=== PATIENT | female | born 1995 | race American Indian/Alaskan Native ===

== ENCOUNTER 2016-09-26 14:11 | Emergency (ER) | payer OTHER ==
[2016-09-26 14:12] VITALS: BMI 23.0
[2016-09-26 14:51] VITALS: BP 114/77; PULSE 72; RESP 18; TEMP 98.8; O2SAT 100
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
== END 2016-09-26 16:25 | disposition home or self-care (01) ==
LOC: H.ER 14:11
DX: M54.9 Dorsalgia, unspecified (principal)

== ENCOUNTER 2016-12-15 17:40 | Emergency (ER) | payer OTHER ==
[2016-12-15 17:41] VITALS: BMI 23.0
[2016-12-15 17:51] VITALS: BP 110/63; PULSE 77; RESP 18; TEMP 98.7; O2SAT 99
[2016-12-15] MEDS ORDERED: Fluorescein 1 mg Ophthalmic Strip ONE (17:56)
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
== END 2016-12-15 18:55 | disposition home or self-care (01) ==
LOC: H.ER 17:40
DX: H20.012 Primary iridocyclitis, left eye (principal)

== ENCOUNTER 2017-03-07 16:41 | Emergency (ER) | payer OTHER ==
[2017-03-07 16:41] VITALS: BMI 23.0
--- NOTE | 2017-03-07 17:46 | ED PDOC ---
HPI: Abdomen <Damian Chowdhury - Last Filed: 03/07/17 18:40> Chief Complaint (Provider): abdominal pain/diarrhea/vomiting History Per: Patient History/Exam Limitations: no limitations Onset/Duration Of Symptoms: Days (2) Outside of [place] travel?: No Current Symptoms Are (Timing): Better Context: Food Pain Scale Rating Of: 6 Location Of Pain/Discomfort: RLQ Quality Of Discomfort: Sharp, Cramping Associated Symptoms: Vomiting, Diarrhea Exacerbating Factors: None Alleviating Factors: None Abnormal Vaginal Bleeding: No Last Menstral Period: 02/13/17 : 3 Para: 0 (aborta 2, miscarriage 1) <Machelle Neumann - Last Filed: 03/07/17 18:43> Time Seen by Provider: 03/07/17 17:02 Chief Complaint (Nursing): Abdominal Pain Additional Complaint(s): Sonali Rendon is a 21 yo F who presented to the ED today, Monday03/07/17 with complaint of right sided abdominal pain x3 days, vomiting and diarrhea x2 days that have since resolved. Pain is located in RLQ, rates the pain 6/10, states it does not radiate anywhere, and describes it as sharp and cramping. Pt stated her abdominal pain started three days ago (Sat. evening); pt went to [place] this past weekend and had shari cheesesteaks and alcohol at a friend's birthday on Monday night. She woke up Monday morning and had diarrhea and vomited. No blood or mucus in either stool or vomit. Pt had 3 more episodes of diarrhea and vomiting on Monday, and one more of each yesterday ( Monday) morning. Today, she did not experience diarrhea or vomiting, but states the pain has not resolved. (Machelle Neumann) Supervising Attending Note - Supervising Attending Note The Documented history was done by the: Physician Landscape Artist, Attending Physician The documented physical exam was done by the: Physician Landscape Artist, Attending Physician The documented procedures were done by the: Physician Landscape Artist, Attending Physician - Attestation: I have personally seen and examined this patient.: Yes I have fully participated in the care of the patient.: Yes I have reviewed all pertinent clinical information: Yes <Damian Chowdhury - Last Filed: 03/07/17 18:40> Past Medical History <Damian Chowdhury - Last Filed: 03/07/17 18:40> - Medical History PMH: No Chronic Diseases Denies: Chronic Kidney Disease - Surgical History Surgical History: No Surg Hx - Family History Family History: States: Unknown Family Hx - Social History Current smoker - smoking cessation education provided: Yes (social smoker, pt states she does not buy her own packs) Alcohol: Other (3x/week, 1-2 drinks) Drugs: Denies - Immunization History Hx Tetanus Toxoid Vaccination: No Hx Influenza Vaccination: No Hx Pneumococcal Vaccination: No <Machelle Neumann - Last Filed: 03/07/17 18:43> Vital Signs: Last Vital Signs Temp 98.0 F 03/07/17 16:50 Pulse 90 03/07/17 16:50 Resp 16 03/07/17 16:50 BP 152/75 H 03/07/17 16:50 Pulse Ox 100 03/07/17 18:32 - Home Medications Home Medications: Ambulatory Orders Medication Instructions Recorded Ibuprofen [Motrin] 600 mg PO Q6H #30 tab 08/22/16 Meloxicam [Mobic] 7.5 mg PO DAILY PRN #15 tab 09/26/16 Methocarbamol [Robaxin] 500 mg PO Q8 PRN #15 tab 09/26/16 Naproxen [Naprosyn Tab] 375 mg PO Q8 PRN #21 tab 12/15/16 - Allergies Allergies/Adverse Reactions: Allergies Allergy/AdvReac Type Severity Reaction Status Date / Time No Known Allergies Allergy Verified 03/07/17 16:50 Review of Systems ROS Statement: Except As Marked, All Systems Reviewed And Found Negative Gastrointestinal: Positive for: Vomiting, Abdominal Pain, Diarrhea <Machelle Neumann - Last Filed: 03/07/17 18:43> Physical Exam - Physical Exam Appears: Positive for: Non-toxic, No Acute Distress Head Exam: Positive for: ATRAUMATIC, NORMAL INSPECTION Skin: Positive for: Warm, Dry Eye Exam: Positive for: Normal appearance, EOMI, PERRL. Negative for: Conjunctival injection, Scleral icterus ENT: Negative for: Nasal Congestion, Pharyngeal Erythema, Tonsillar Exudate Neck: Positive for: Normal (no palpable lymph nodes), Painless ROM, Supple Cardiovascular/Chest: Positive for: Regular Rate, Rhythm. Negative for: Murmur Respiratory: Positive for: Normal Breath Sounds. Negative for: Accessory Muscle Use, Wheezing, Respiratory Distress Gastrointestinal/Abdominal: Positive for: Bowel Sounds, Soft, Tenderness (mild tenderness on palpation in RLQ). Negative for: Mass, Distended, Guarding, Rebound Back: Negative for: L CVA Tenderness, R CVA Tenderness Extremity: Positive for: Normal ROM, Capillary Refill (<2 seconds). Negative for: Tenderness, Pedal Edema, Deformity Neurologic/Psych: Positive for: Alert, Oriented <Machelle Neumann - Last Filed: 03/07/17 18:43> - Laboratory Results Result Diagrams: 03/07/17 18:26 <LucianaMuralijazzy Lazaro - Last Filed: 03/07/17 18:40> - Laboratory Results Result Diagrams: 03/07/17 18:26 - ECG O2 Sat by Pulse Oximetry: 100 <MuraliMachelle sanchez - Last Filed: 03/07/17 18:43> Medical Decision Making <LucianaMuralijazzy Lazaro - Last Filed: 03/07/17 18:40> <MuraliMachelle sanchez - Last Filed: 03/07/17 18:43> Medical Decision Makin:45 Pt seen, examined, evaluated. -Urine dip, preg negative 18:15 - CBC - CMP - CT abdomen/pelvis PO and IV contrast ordered 18:40 -no leukocytosis, CBC unremarkable (Machelle Neumann) Disposition - Patient ED Disposition Is Patient to be Admitted: Transfer of Care Counseled Patient/Family Regarding: Studies Performed, Diagnosis - Disposition Disposition: Transfer of Care Disposition Time: 19:00 Patient Signed Over To: Bruno Benavidez Handoff Comments: pending labs and CT abdomen <Damian Chowdhury - Last Filed: 03/07/17 18:40> <MuraliMachelle sanchez - Last Filed: 03/07/17 18:43> - Clinical Impression Clinical Impression: Abdominal pain - Disposition Condition: STABLE Forms: [employer] (Greek)
[2017-03-07] MEDS ORDERED: Iohexol 240 (50 ml) PO ONE (18:11)
[2017-03-07] MEDS ORDERED: Iohexol 240 (50 ml) ONE (18:23)
[2017-03-07 18:32] LABS: BASO # 0.1 K/uL (0.0-0.2); BASO % 0.9 % (0.0-2.0); EOS # 0.1 K/uL (0.0-0.7); EOS % 1.1 % (0.0-4.0); HEMATOCRIT 38.3 % (34.0-47.0); LYMPH # 2.1 K/uL (1.0-4.3); LYMPH % 27.5 % (20.0-40.0); MEAN CORPUSCULAR HEMOGLOBIN 31.7 pg (27.0-31.0); MEAN CORPUSCULAR HGB CONC 33.4 g/dL (33.0-37.0); MEAN PLATELET VOLUME 9.4 fl (7.2-11.7); MONO # 0.6 K/uL (0.0-0.8); MONO % 8.5 % (0.0-10.0); NEUT # 4.7 K/uL (1.8-7.0); NRBC % 0.1 % (0.0-0.0); RED CELL DISTRIBUTION WIDTH 12.3 % (11.5-14.5); WHITE BLOOD COUNT 7.6 K/uL (4.8-10.8)
[2017-03-07 18:57] LABS: ALB/GLOB RATIO 1.3 (1.0-2.1); ALKALINE PHOSPHATASE 65 U/L (38-126); ALT/SGPT 22 U/L (9-52); AST/SGOT 28 U/L (14-36); BILIRUBIN,TOTAL 0.9 mg/dl (0.2-1.3); BLOOD UREA NITROGEN 14 mg/dl (7-17); CALCIUM 9.2 mg/dL (8.4-10.2); CARBON DIOXIDE 23 mmol/L (22-30); CHLORIDE 104 mmol/L (98-107); GFR AFRICAN-AMERICAN > 60; GLUCOSE,RANDOM 81 mg/dL (65-105); POTASSIUM 4.4 MMOL/L (3.6-5.0); SODIUM 136 mmol/l (132-148); TOTAL PROTEIN 7.6 G/DL (6.3-8.2)
[2017-03-07] MEDS ORDERED: Iohexol 300 100 ML IJ ONE (20:05)
[2017-03-07] MEDS ORDERED: Sodium Chloride 0.9% 50 ML IV ONE (20:06)
--- NOTE | 2017-03-07 21:32 | CT ---
EXAM: CT Abdomen and Pelvis With Intravenous Contrast CLINICAL HISTORY: 21 years old, female; Pain; Abdominal pain; Localized; Right; Patient HX: Miscarriage 2 yrs ago TECHNIQUE: Axial computed tomography images of the abdomen and pelvis with intravenous contrast. All CT scans at this facility use one or more dose reduction techniques, viz.: automated exposure control; ma/kV adjustment per patient size (including targeted exams where dose is matched to indication; i.e. head); or iterative reconstruction technique. Coronal and sagittal reformatted images were created and reviewed. CONTRAST: 90 mL of [id number] administered intravenously. COMPARISON: No relevant prior studies available. FINDINGS: Lower thorax: No acute findings. ABDOMEN: Liver: Unremarkable. No mass. Gallbladder and bile ducts: No calcified stones. No ductal dilation. Pancreas: No ductal dilation. No mass. Spleen: No splenomegaly. Adrenals: No mass. Kidneys and ureters: No mass. No hydronephrosis. Stomach and bowel: No definite mural thickening. No obstruction. Appendix: Normal caliber. No definite inflammation. PELVIS: Bladder: Unremarkable. Reproductive: 1.3 x 1.6 x 1.8 cm peripherally enhancing hypodensity with crenulated margins within LEFT ovary. ABDOMEN and PELVIS: Intraperitoneal space: Small free fluid within pelvis. No free air. Bones/joints: No acute fracture. Soft tissues: Tiny umbilical hernia containing fat. Vasculature: Prominent vessels within pelvis, LEFT greater than RIGHT. No aneurysm. Lymph nodes: No pathologically enlarged lymph nodes. IMPRESSION: 1. Involuting or ruptured LEFT ovarian follicle/cyst. 2. Possible pelvic congestion syndrome. 3. Incidental/non-acute findings are described above.
[2017-03-07 21:53] VITALS: BP 128/80; PULSE 78; RESP 18; TEMP 98.2
[2017-03-07 21:54] VITALS: O2SAT 100
--- NOTE | 2017-03-07 21:54 | ED PDOC ---
- Laboratory Results Result Diagrams: 03/07/17 18:26 03/07/17 18:26 - ECG O2 Sat by Pulse Oximetry: 100 (RA) Pulse Ox Interpretation: Normal Medical Decision Making Medical Decision Making: Time: 19:00 --Patient is signed out by Dr. Damian Chowdhury MD to sc, pending CT and final disposition. Time: 21:32 CT Abdomen/Pelvis: FINDINGS: Lower thorax: No acute findings. ABDOMEN: Liver: Unremarkable. No mass. Gallbladder and bile ducts: No calcified stones. No ductal dilation. Pancreas: No ductal dilation. No mass. Spleen: No splenomegaly. Adrenals: No mass. Kidneys and ureters: No mass. No hydronephrosis. Stomach and bowel: No definite mural thickening. No obstruction. Appendix: Normal caliber. No definite inflammation. PELVIS: Bladder: Unremarkable. Reproductive: 1.3 x 1.6 x 1.8 cm peripherally enhancing hypodensity with crenulated margins within LEFT ovary. ABDOMEN and PELVIS: Intraperitoneal space: Small free fluid within pelvis. No free air. Bones/joints: No acute fracture. Soft tissues: Tiny umbilical hernia containing fat. Vasculature: Prominent vessels within pelvis, LEFT greater than RIGHT. No aneurysm. Lymph nodes: No pathologically enlarged lymph nodes. IMPRESSION: 1. Involuting or ruptured LEFT ovarian follicle/cyst. 2. Possible pelvic congestion syndrome. 3. Incidental/non-acute findings are described above. Time: 21:52 --Patient reports improvement in symptoms. Requesting to go home and manage diagnoses with outpatient follow up. --On reevaluation, patient is medically stable and requires no further treatment in the ED. Will be discharged with Rx for Motrin. --Family and patient agreeable to discharge plan. Given copies of imaging reports. --Return precautions given such as worsening abdominal pain, fever, vaginal bleeding. Disposition Counseled Patient/Family Regarding: Studies Performed, Diagnosis, Need For Followup - Clinical Impression Clinical Impression: Abdominal pain, Ovarian cyst rupture - POA Present On Arrival: None - Disposition [facility]] Disposition: Routine/Home Disposition Time: 21:52 Condition: STABLE Prescriptions: Ibuprofen [Motrin Tab] 600 mg PO Q6 #30 tab Instructions: Ovarian Cyst (ED) Forms: [employer] (Chinese)
== END 2017-03-07 22:10 | disposition home or self-care (01) ==
LOC: H.ER 16:41
DX: N83.202 Unspecified ovarian cyst, left side (principal); R10.9 Unspecified abdominal pain
CPT/HCPCS: 74177; 80053; 81025; 85025; 99283; Q9966; Q9967

== ENCOUNTER 2017-04-18 14:06 | Emergency (ER) | payer MEDICAID, OTHER ==
[2017-04-18 14:07] VITALS: BMI 23.0
[2017-04-18 14:47] VITALS: BP 136/75; PULSE 79; RESP 17; TEMP 98.5; O2SAT 100
--- NOTE | 2017-04-18 15:10 | ED PDOC ---
HPI: CCC, URI, Sore Throat Time Seen by Provider: 04/18/17 14:19 Chief Complaint (Nursing): ENT Problem Chief Complaint (Provider): ENT Problem History Per: Patient History/Exam Limitations: no limitations Onset/Duration Of Symptoms: Days (x2) Current Symptoms Are (Timing): Still Present Additional Complaint(s): Sonali Rendon is a 22 year old female who presents to the emergency department with a complaint of sore throat associated with sweats and chills ongoing for 2 days. Denied any coughing, ear pain or sick contacts. Patient stated she has been taking Tylenol and drinking hot tea with lemon with no relief of pain. PMD: none provided Past Medical History Reviewed: Historical Data, Nursing Documentation, Vital Signs Vital Signs: Last Vital Signs Temp 98.5 F 04/18/17 14:45 Pulse 79 04/18/17 14:45 Resp 17 04/18/17 14:45 BP 136/75 04/18/17 14:45 Pulse Ox 100 04/18/17 15:47 - Medical History PMH: No Chronic Diseases Denies: Chronic Kidney Disease - Family History Family History: States: Unknown Family Hx - Social History Current smoker - smoking cessation education provided: Yes Alcohol: Occasional Drugs: Denies - Immunization History Hx Tetanus Toxoid Vaccination: No Hx Influenza Vaccination: No Hx Pneumococcal Vaccination: No - Home Medications Home Medications: Ambulatory Orders Medication Instructions Recorded Ibuprofen [Motrin Tab] 600 mg PO Q6 #30 tab 03/07/17 Amoxicillin/Clavulanate [Augmentin 1 tab PO BID #20 tab 04/18/17 875 MG-125 MG] Ibuprofen [Motrin] 600 mg PO Q6 #20 tab 04/18/17 - Allergies Allergies/Adverse Reactions: Allergies Allergy/AdvReac Type Severity Reaction Status Date / Time No Known Allergies Allergy Verified 03/07/17 16:50 Review of Systems ROS Statement: Except As Marked, All Systems Reviewed And Found Negative Constitutional: Positive for: Chills, Sweats ENT: Positive for: Throat Pain. Negative for: Ear Pain Respiratory: Negative for: Cough Physical Exam - Reviewed Nursing Documentation Reviewed: Yes Vital Signs Reviewed: Yes - Physical Exam Appears: Positive for: Well, Non-toxic, No Acute Distress Head Exam: Positive for: ATRAUMATIC, NORMAL INSPECTION, NORMOCEPHALIC ENT: Positive for: Pharyngeal Erythema (mild). Negative for: Tonsillar Exudate , Tonsillar Swelling Cardiovascular/Chest: Positive for: Regular Rate, Rhythm. Negative for: Chest Non Tender Respiratory: Positive for: Normal Breath Sounds, Accessory Muscle Use. Negative for: Decreased Breath Sounds, Respiratory Distress Neurologic/Psych: Positive for: Alert (x3), Oriented - ECG O2 Sat by Pulse Oximetry: 100 (RA) Pulse Ox Interpretation: Normal Medical Decision Making Medical Decision Making: Initial Impression: Pharyngitis Initial Plan: * Motrin 600mg PO * Rapid strep Strep (+) Medicated with Augmnetin PO Scribe Attestation: Documented by Mary Jo Caballero, acting as a scribe for Margarita Cam Provider Scribe Attestation: All medical record entries made by the Scribe were at my direction and personally dictated by me. I have reviewed the chart and agree that the record accurately reflects my personal performance of the history, physical exam, medical decision making, and the department course for this patient. I have also personally directed, reviewed, and agree with the discharge instructions and disposition. Disposition - Clinical Impression Clinical Impression: Strep pharyngitis - Patient ED Disposition Is Patient to be Admitted: No - Disposition Disposition: Routine/Home Disposition Time: 16:09 Condition: STABLE Prescriptions: Amoxicillin/Clavulanate [Augmentin 875 MG-125 MG] 1 tab PO BID #20 tab Ibuprofen [Motrin] 600 mg PO Q6 #20 tab Instructions: Strep Throat (ED) Forms: [facility] ([place]ian), [facility] ED School/Work Excuse
[2017-04-18] MEDS ORDERED: Amoxicillin-Clav 875-125 mg Tab PO STA (16:06)
[2017-04-18] MEDS ORDERED: Amoxicillin-Clav 875-125 mg Tab PO ONE (16:12)
[2017-04-18] MEDS ORDERED: Amoxicillin-Clav 400-57 mg/5 ml Susp (50 ml) PO STA (16:44)
== END 2017-04-18 17:25 | disposition home or self-care (01) ==
LOC: H.ER 14:06
DX: J02.0 Streptococcal pharyngitis (principal)

== ENCOUNTER 2017-06-07 16:19 | Emergency (ER) | payer MEDICAID ==
[2017-06-07 16:19] VITALS: BMI 23.0
[2017-06-07 16:36] VITALS: BP 110/51; PULSE 68; RESP 20; O2SAT 100
[2017-06-07] MEDS ORDERED: Iohexol 240 (50 ml) PO STA (16:58)
[2017-06-07] MEDS ORDERED: Sodium Chloride 0.9% 1,000 ML IV STA (16:59)
--- NOTE | 2017-06-07 17:11 | ED PDOC ---
HPI: Abdomen Time Seen by Provider: 06/07/17 16:40 Chief Complaint (Nursing): Abdominal Pain Chief Complaint (Provider): Abdominal cramps History Per: Patient History/Exam Limitations: no limitations Onset/Duration Of Symptoms: Days (7) Current Symptoms Are (Timing): Intermittent Episodes Location Of Pain/Discomfort: Other (Lower) Quality Of Discomfort: Cramping Associated Symptoms: denies: Fever, Chills, Nausea, Vomiting, Diarrhea, Loss Of Appetite, Back Pain, Chest Pain, Constipation, Urinary Symptoms Last Bowel Movement: Today Additional Complaint(s): Pt reports abdominal pain cramping X 1 week, intermittent. Denies fever, nausea , vomiting, constipation, diarrhea, dysuria, hematuria, vaginal bleeding, vaginal discharge. Has not taken pain medication. Abnormal Vaginal Bleeding: No Past Medical History Reviewed: Nursing Documentation, Vital Signs Vital Signs: Last Vital Signs Temp 98.4 F 06/07/17 20:24 Pulse 68 06/07/17 16:33 Resp 20 06/07/17 16:33 BP 110/51 L 06/07/17 16:33 Pulse Ox 100 06/07/17 17:13 - Medical History PMH: No Chronic Diseases Denies: Chronic Kidney Disease - Surgical History Surgical History: No Surg Hx - Family History Family History: States: Unknown Family Hx - Social History Current smoker - smoking cessation education provided: No - Immunization History Hx Tetanus Toxoid Vaccination: No Hx Influenza Vaccination: No Hx Pneumococcal Vaccination: No - Home Medications Home Medications: Ambulatory Orders Medication Instructions Recorded Ibuprofen [Motrin Tab] 600 mg PO Q6 #30 tab 03/07/17 Amoxicillin/Clavulanate [Augmentin 10 ml PO BID 10 Days ml 04/18/17 400-57] Amoxicillin/Clavulanate [Augmentin 1 tab PO BID #20 tab 04/18/17 875 MG-125 MG] Ibuprofen [Motrin] 600 mg PO Q6 #20 tab 04/18/17 Vit Calc,Iron,Folic 1 each PO DAILY #30 tablet 06/07/17 [ Vitamins] - Allergies Allergies/Adverse Reactions: Allergies Allergy/AdvReac Type Severity Reaction Status Date / Time No Known Allergies Allergy Verified 03/07/17 16:50 Review of Systems Constitutional: Negative for: Fever, Chills ENT: Negative for: Ear Pain, Throat Pain, Throat Swelling Cardiovascular: Negative for: Chest Pain Respiratory: Negative for: Cough Gastrointestinal: Positive for: Abdominal Pain. Negative for: Nausea, Vomiting , Diarrhea Genitourinary Female: Positive for: Pelvic Pain. Negative for: Dysuria, Hematuria, Vaginal Discharge, Vaginal Bleeding Musculoskeletal: Negative for: Neck Pain, Back Pain Skin: Negative for: Rash, Lesions Neurological: Negative for: Headache, Dizziness Physical Exam - Reviewed Nursing Documentation Reviewed: Yes Vital Signs Reviewed: Yes - Physical Exam Appears: Positive for: Well, No Acute Distress Head Exam: Positive for: ATRAUMATIC, NORMAL INSPECTION Skin: Positive for: Normal Color, Warm, Dry Eye Exam: Positive for: Normal appearance, EOMI, PERRL Cardiovascular/Chest: Positive for: Regular Rate, Rhythm Respiratory: Positive for: Normal Breath Sounds. Negative for: Rales, Rhonchi, Wheezing Gastrointestinal/Abdominal: Positive for: Bowel Sounds, Soft, Tenderness (BLQ (> RLQ)). Negative for: Distended, Guarding, Rebound Back: Negative for: Normal Inspection, L CVA Tenderness, R CVA Tenderness Extremity: Positive for: Normal ROM Neurologic/Psych: Positive for: Alert, Oriented - Laboratory Results Result Diagrams: 06/07/17 17:55 06/07/17 17:55 - ECG O2 Sat by Pulse Oximetry: 100 Medical Decision Making Medical Decision Makin yo female with lower abdominal pain X 1 week and fever. - labs - CT abd/pelvis - IVF - Tylenol (+) urine test, CT canceled. Accession No. : [id number] Patient Name / ID : HIGH LAWSON / [id number] Exam Date : 06/07/2017 18:07:16 ( Approved ) Study Comment : Sex / Age : F / 22Y Creator : XIOMARA HOLLY Dictator : Lsat Instructor : Printing Pressman : XIOMARA HOLLY Approver2 : Report Date : 06/07/2017 20:06:00 My Comment : [facility] Division of Radiology [address] [place] [address] Tel. no. Patient Name: LULU MUNSON Pt. Address: [address] [place] [address] Rec #: [id number] [place] [address]: Daja BLACKMAN,Chari Banegas Pt CELL Order Location: [facility] : 1995 Female Age: 22 Order #: [id number] Reason for exam: Lower abd pain, fever Ultrasound OB PREG 1ST TRI OB TRANSVAG Exam Date: 06/07/17 This imaging exam was performed at [facility] EXAM: US , Transabdominal and Transvaginal CLINICAL HISTORY: 22 years old, female; Pain; complicated by abdominal or pelvic pain; Lower; First trimester; Gestational age or lmp: 03/29/2017; ; Additional info: Lower abd pain, fever TECHNIQUE: Real-time transabdominal and transvaginal obstetrical ultrasound of the maternal pelvis and a first trimester with image documentation. Transvaginal imaging was used for better evaluation of the fetus and adnexa. COMPARISON: No relevant prior studies available. FINDINGS: Gestation: A single intrauterine gestation is identified with a crown-rump length measuring 14.8 mm, corresponding to an approximate gestational age of 7 weeks and 6 days. cardiac activity is identified at a rate of 153 beats per minute. Placenta/amniotic fluid: Cannot be adequately evaluated due to the early gestational age. Uterus/cervix: Cervix measures 4 cm, and is closed. Ovaries: The right ovary is unremarkable in echogenicity and size measuring 3.4 x 1.6 x 2.7 cm. Dopplerable flow is detected. The left ovary is unremarkable in echogenicity and size measuring 3.2 x 1.9 x 3.0 cm. Dopplerable flow is present. Pelvic varicosities are also noted, a nonspecific finding. Free fluid: No free fluid. IMPRESSION: Single intrauterine gestation with an approximate gestational age of 7 weeks and 6 days. cardiac activity is identified. Dictated By: Xiomara Holly MD Dictated Date/Time: 06/07/172005 Signed By: Xiomara Holly MD Date Signed: 2005 Transcribed By: CHRISTEN Transcribe Date/Time : 06/07/172005 MELANIE/CARLOS Disposition - Clinical Impression Clinical Impression: Abdominal pain during - Disposition [facility] Disposition: Routine/Home Disposition Time: 20:33 Condition: STABLE Prescriptions: Vit Calc,Iron,Folic [ Vitamins] 1 each PO DAILY #30 tablet Instructions: Abdominal Pain in (ED) Forms: [facility] (Bulgarian)
[2017-06-07 18:02] LABS: BASO # 0.1 K/uL (0.0-0.2); BASO % 0.8 % (0.0-2.0); EOS % 0.7 % (0.0-4.0); HEMATOCRIT 35.2 % (34.0-47.0); LYMPH # 1.6 K/uL (1.0-4.3); MEAN CELL VOLUME 94.8 fl (81.0-99.0); MEAN CORPUSCULAR HEMOGLOBIN 31.3 pg (27.0-31.0); MEAN PLATELET VOLUME 8.8 fl (7.2-11.7); MONO # 0.5 K/uL (0.0-0.8); NEUT # 4.6 K/uL (1.8-7.0); NEUT % 67.5 % (50.0-75.0); RED CELL DISTRIBUTION WIDTH 12.1 % (11.5-14.5); WHITE BLOOD COUNT 6.8 K/uL (4.8-10.8)
[2017-06-07 18:16] LABS: ALB/GLOB RATIO 1.4 (1.0-2.1); BILIRUBIN,TOTAL 0.4 mg/dl (0.2-1.3); CALCIUM 8.7 mg/dL (8.4-10.2); CARBON DIOXIDE 26 mmol/L (22-30); CHLORIDE 104 mmol/L (98-107); GFR AFRICAN-AMERICAN > 60; GLUCOSE,RANDOM 85 mg/dL (65-105); SODIUM 139 mmol/l (132-148); TOTAL PROTEIN 7.3 G/DL (6.3-8.2)
[2017-06-07 18:18] LABS: RBC URINE 2 /hpf (0-3); URINE BILIRUBIN NEGATIVE (NEGATIVE); URINE BLOOD NEGATIVE (NEGATIVE); URINE COLOR YELLOW (YELLOW); URINE GLUCOSE (UA) NEG (Normal); URINE KETONE NEGATIVE (NEGATIVE); URINE LEUKOCYTE ESTERASE NEG Leu/uL (Negative); URINE PROTEIN 30 mg/dL (NEGATIVE); WBC URINE 3 /hpf (0-5)
[2017-06-07 18:37] LABS: ALKALINE PHOSPHATASE 52 U/L (38-126); ALT/SGPT 25 U/L (9-52); AST/SGOT 24 U/L (14-36); BLOOD UREA NITROGEN 8 mg/dl (7-17); POTASSIUM 3.7 MMOL/L (3.6-5.0)
--- NOTE | 2017-06-07 20:06 | US ---
EXAM: US , Transabdominal and Transvaginal CLINICAL HISTORY: 22 years old, female; Pain; complicated by abdominal or pelvic pain; Lower; First trimester; Gestational age or lmp: 03/29/2017; ; Additional info: Lower abd pain, fever TECHNIQUE: Real-time transabdominal and transvaginal obstetrical ultrasound of the maternal pelvis and a first trimester with image documentation. Transvaginal imaging was used for better evaluation of the fetus and adnexa. COMPARISON: No relevant prior studies available. FINDINGS: Gestation: A single intrauterine gestation is identified with a crown-rump length measuring 14.8 mm, corresponding to an approximate gestational age of 7 weeks and 6 days. cardiac activity is identified at a rate of 153 beats per minute. Placenta/amniotic fluid: Cannot be adequately evaluated due to the early gestational age. Uterus/cervix: Cervix measures 4 cm, and is closed. Ovaries: The right ovary is unremarkable in echogenicity and size measuring 3.4 x 1.6 x 2.7 cm. Dopplerable flow is detected. The left ovary is unremarkable in echogenicity and size measuring 3.2 x 1.9 x 3.0 cm. Dopplerable flow is present. Pelvic varicosities are also noted, a nonspecific finding. Free fluid: No free fluid. IMPRESSION: Single intrauterine gestation with an approximate gestational age of 7 weeks and 6 days. cardiac activity is identified.
[2017-06-07 20:24] VITALS: TEMP 98.4
== END 2017-06-07 21:40 | disposition home or self-care (01) ==
LOC: H.ER 16:19
DX: O26.891 Other specified pregnancy related conditions, first trimester (principal); Z3A.01 Less than 8 weeks gestation of pregnancy
CPT/HCPCS: 76815; 76817; 80053; 81003; 81025; 84702; 85025; 87040; 87086; 87804; 99283; J7040

== ENCOUNTER 2017-10-30 17:07 | Emergency (ER) | payer MEDICAID ==
[2017-10-30 17:07] VITALS: BMI 23.0
[2017-10-30 17:38] VITALS: BP 106/66; PULSE 67; RESP 18; TEMP 99; O2SAT 99
--- NOTE | 2017-10-30 17:42 | ED PDOC ---
Upper Extremity Pain/Injury Time Seen by Provider: 10/30/17 17:38 Chief Complaint (Nursing): Finger,Hand,&Wrist Chief Complaint (Provider): Swelling to left finger History Per: Patient History/Exam Limitations: no limitations Onset/Duration Of Symptoms: Days (x2 weeks) Current Symptoms Are (Timing): Still Present Additional Complaint(s): 22 year old female presents to the emergency department with swelling to her distal left fourth digit, onset 2 weeks ago. Denies any fever or chills. She states she "popped it" and noticed purulent drainage. Patient is right hand dominant. She reports swelling is persistent and was sent in to the emergency department by her employer. Tetanus not up to date. PMD: Dahlia Duong Past Medical History Reviewed: Historical Data, Nursing Documentation, Vital Signs Vital Signs: Last Vital Signs Temp 99 F 10/30/17 17:35 Pulse 67 10/30/17 17:35 Resp 18 10/30/17 17:35 BP 106/66 10/30/17 17:35 Pulse Ox 99 10/30/17 17:35 - Medical History PMH: Back Problems Denies: Chronic Kidney Disease - Surgical History Surgical History: No Surg Hx - Family History Family History: States: Unknown Family Hx - Social History Alcohol: Social Drugs: Denies - Immunization History Hx Tetanus Toxoid Vaccination: No Hx Influenza Vaccination: No Hx Pneumococcal Vaccination: No - Home Medications Home Medications: Ambulatory Orders Medication Instructions Recorded Ibuprofen [Motrin Tab] 600 mg PO Q6 #30 tab 03/07/17 Amoxicillin/Clavulanate [Augmentin 10 ml PO BID 10 Days ml 04/18/17 400-57] Amoxicillin/Clavulanate [Augmentin 1 tab PO BID #20 tab 04/18/17 875 MG-125 MG] Ibuprofen [Motrin] 600 mg PO Q6 #20 tab 04/18/17 Vit Calc,Iron,Folic 1 each PO DAILY #30 tablet 06/07/17 [ Vitamins] Sulfamethoxazole/Trimethoprim 1 tab PO BID #14 tab 10/30/17 [Bactrim DS 800 mg-160 mg] - Allergies Allergies/Adverse Reactions: Allergies Allergy/AdvReac Type Severity Reaction Status Date / Time No Known Allergies Allergy Verified 03/07/17 16:50 Review of Systems ROS Statement: Except As Marked, All Systems Reviewed And Found Negative Constitutional: Negative for: Fever, Chills Musculoskeletal: Positive for: Other (swelling of left 4th digit) Neurological: Negative for: Numbness Physical Exam - Reviewed Nursing Documentation Reviewed: Yes Vital Signs Reviewed: Yes - Physical Exam Appears: Positive for: No Acute Distress Head Exam: Positive for: ATRAUMATIC, NORMAL INSPECTION, NORMOCEPHALIC Skin: Positive for: Normal Color, Warm, Dry Pulses-Radial (L): 2+ Pulses-Radial (R): 2+ Extremity: Positive for: Normal ROM, Swelling (paronychial abscess noted on 4th digit), Other (mild fluctuance noted) - ECG O2 Sat by Pulse Oximetry: 99 (RA) Pulse Ox Interpretation: Normal Medical Decision Making Medical Decision Making: Initial Impression: Paronychial abscess Time: 17:40 Plan: --Tdap booster --I&D performed (see procedure note) Patient is stable for discharge home, provided with wound care instructions. Advised to follow up in three days for wound check. Scribe Attestation: Documented by Danita Adam, acting as a scribe for Ezequiel Currie PA-C Provider Scribe Attestation: All medical record entries made by the Scribe were at my direction and personally dictated by me. I have reviewed the chart and agree that the record accurately reflects my personal performance of the history, physical exam, medical decision making, and the department course for this patient. I have also personally directed, reviewed, and agree with the discharge instructions and disposition. Procedures - Time-Out Type of Procedure: I&D of abscess Site of Procedure: left 4th digit Correct Patient: Yes Correct Procedure: Yes - Incision and Drainage Blade Size: 11 I & D Procedure: sterile dressing applied Progress: Verbal consent obtained prior to procedure. Minimal drainage noted. Disposition - Clinical Impression Clinical Impression: Acute paronychia of finger - Patient ED Disposition Is Patient to be Admitted: No Counseled Patient/Family Regarding: Diagnosis, Need For Followup, Rx Given - Disposition Disposition: Routine/Home Disposition Time: 17:47 Condition: FAIR Prescriptions: Sulfamethoxazole/Trimethoprim [Bactrim DS 800 mg-160 mg] 1 tab PO BID #14 tab Instructions: Paronychia Forms: [facility] ED School/Work Excuse, [facility] (Paraguayan) - POA Present On Arrival: None
[2017-10-30] MEDS: Tdap Vaccine 0.5 ml Vial (10-64 yrs) IM ONE (18:03)
== END 2017-10-30 18:10 | disposition home or self-care (01) ==
LOC: H.ER 17:07
DX: L03.012 Cellulitis of left finger (principal); L02.512 Cutaneous abscess of left hand; Z23 Encounter for immunization

== ENCOUNTER 2018-01-28 14:33 | Emergency (ER) | payer MEDICAID ==
[2018-01-28 14:33] VITALS: BMI 23.0
[2018-01-28 14:47] VITALS: TEMP 98.5
[2018-01-28] MEDS ORDERED: Albuterol-Ipratrop 3 mg / 0.5 (3 ml) UD INH STA (15:15)
--- NOTE | 2018-01-28 15:24 | ED PDOC ---
HPI: CCC, URI, Sore Throat Time Seen by Provider: 01/28/18 15:00 Chief Complaint (Nursing): Shortness Of Breath Chief Complaint (Provider): Shortness Of Breath and Cough History Per: Patient History/Exam Limitations: no limitations Onset/Duration Of Symptoms: Days (x1) Current Symptoms Are (Timing): Still Present Associated Symptoms: Cough, Sputum. denies: Fever Additional Complaint(s): 22 year old female with no significant past medical history presents to the ED complaining of cough and shortness of breath onset one day associated yellow green sputum. Patient reports she has difficulty sleeping because of cough and mild congestion. Her chest pain is mid sternum and is worse with coughing and deep breath. She states she had a febrile illness one week ago that resolved on its own. Patient denies hemoptysis, fever, runny nose, sore throat, leg swelling , immobilization, taking control or any other medical complaints. PMD: patient does not have one. Past Medical History Reviewed: Historical Data, Nursing Documentation, Vital Signs Vital Signs: Last Vital Signs Temp 98.5 F 01/28/18 14:44 Pulse 75 01/28/18 15:34 Resp 21 01/28/18 15:30 BP 95/58 L 01/28/18 14:44 Pulse Ox 100 01/28/18 15:34 - Medical History PMH: Back Problems Denies: Chronic Kidney Disease - Surgical History Surgical History: No Surg Hx - Family History Family History: States: No Known Family Hx - Social History Current smoker - smoking cessation education provided: Yes (cigarettes and hookah) Ex-Smoker (has not smoked in the last 12 months): No Alcohol: Social Drugs: Denies - Immunization History Hx Tetanus Toxoid Vaccination: No Hx Influenza Vaccination: No Hx Pneumococcal Vaccination: No - Home Medications Home Medications: Ambulatory Orders Medication Instructions Recorded Ibuprofen [Motrin Tab] 600 mg PO Q6 #30 tab 03/07/17 Amoxicillin/Clavulanate [Augmentin 10 ml PO BID 10 Days ml 04/18/17 400-57] Amoxicillin/Clavulanate [Augmentin 1 tab PO BID #20 tab 04/18/17 875 MG-125 MG] Ibuprofen [Motrin] 600 mg PO Q6 #20 tab 04/18/17 Vit Calc,Iron,Folic 1 each PO DAILY #30 tablet 11/29/17 [ Vitamins] Sulfamethoxazole/Trimethoprim 1 tab PO BID #14 tab 10/30/17 [Bactrim DS 800 mg-160 mg] Ibuprofen [Motrin Tab] 600 mg PO Q8 PRN #30 tab 01/28/18 Promethazine DM [Phenergan DM 10 ml PO Q6 PRN #120 ml 01/28/18 Syrup] - Allergies Allergies/Adverse Reactions: Allergies Allergy/AdvReac Type Severity Reaction Status Date / Time No Known Allergies Allergy Verified 03/07/17 16:50 Review of Systems ROS Statement: Except As Marked, All Systems Reviewed And Found Negative ENT: Positive for: Nose Congestion Cardiovascular: Positive for: Chest Pain Respiratory: Positive for: Cough, Shortness of Breath Physical Exam - Reviewed Nursing Documentation Reviewed: Yes Vital Signs Reviewed: Yes - Physical Exam Appears: Positive for: Well, Non-toxic, No Acute Distress Head Exam: Positive for: ATRAUMATIC, NORMOCEPHALIC Skin: Positive for: Normal Color, Warm, Dry Eye Exam: Positive for: EOMI, Normal appearance, PERRL Neck: Positive for: Normal, Painless ROM, Supple Cardiovascular/Chest: Positive for: Regular Rate, Rhythm. Negative for: Chest Non Tender (mild mid chest wall tender to palpation ), Murmur Respiratory: Positive for: Normal Breath Sounds. Negative for: Rales, Rhonchi, Wheezing, Respiratory Distress Gastrointestinal/Abdominal: Positive for: Soft. Negative for: Tenderness Back: Positive for: Normal Inspection. Negative for: Decreased ROM Extremity: Positive for: Normal ROM (upper and lower). Negative for: Calf Tenderness, Deformity Lymphatic: Negative for: Adenopathy Neurologic/Psych: Positive for: Alert, Oriented (x3) - ECG ECG: Positive for: Interpreted By Me, Viewed By Me ECG Rhythm: Positive for: Normal QRS, Normal ST Segment, Sinus Rhythm Rate: 75 O2 Sat by Pulse Oximetry: 100 (RA) Pulse Ox Interpretation: Normal Medical Decision Making Medical Decision Making: Time: 15:14 Initial Impression: Cough Differential diagnoses include but are not limited to: URI, bronchitis, pneumonia, or reactive airway disease Initial Plan: --EKG --Urine preg --Urine dip --CXR --Duoneb 3 ml INH --Motrin tab 600 mg PO --Pepcid 40 mg PO --Peak flow pre/post tx CXR unremarkable. DW pt findings. Will treat as early bronchitis, most likely viral. Advised rest , fluids, symptomatic treatment. ---- Scribe Attestation: Documented by Gema Veronica, acting as a scribe for Margarita Caban MD Provider Scribe Attestation: All medical record entries made by the Scribe were at my direction and personally dictated by me. I have reviewed the chart and agree that the record accurately reflects my personal performance of the history, physical exam, medical decision making, and the department course for this patient. I have also personally directed, reviewed, and agree with the discharge instructions and disposition. Disposition - Clinical Impression Clinical Impression: Chest cold Counseled Patient/Family Regarding: Studies Performed, Diagnosis, Need For Followup, Rx Given - Disposition Referrals: [facility] [Outside] Disposition: Routine/Home Disposition Time: 16:34 Condition: STABLE Prescriptions: Ibuprofen [Motrin Tab] 600 mg PO Q8 PRN #30 tab PRN Reason: Pain, Moderate (4-7) Promethazine DM [Phenergan DM Syrup] 10 ml PO Q6 PRN #120 ml PRN Reason: severe cough Instructions: Acute Bronchitis, Adult (DC) Forms: [facility] ED School/Work Excuse
[2018-01-28] MEDS ORDERED: Albuterol-Ipratrop 3 mg / 0.5 (3 ml) UD ONE (15:28)
[2018-01-28 16:58] VITALS: BP 126/63; PULSE 69; RESP 18; O2SAT 99
--- NOTE | 2018-01-28 17:37 | RAD ---
Date of service: 01/28/2018 HISTORY: chest pain COMPARISON: 05/15/2016 TECHNIQUE: Chest PA and lateral FINDINGS: LUNGS: No active pulmonary disease. PLEURA: No significant pleural effusion identified. No pneumothorax apparent. CARDIOVASCULAR: Normal. OSSEOUS STRUCTURES: No significant abnormalities. VISUALIZED UPPER ABDOMEN: Normal. OTHER FINDINGS: None. IMPRESSION: No active disease.
--- NOTE | 2018-01-30 12:43 | CARD ---
APPROVED REPORT Date of service: 01/28/2018 EKG Measurement Heart [id number] <Conclusion> Normal sinus rhythm with sinus arrhythmia Normal ECG
== END 2018-01-28 16:58 | disposition home or self-care (01) ==
LOC: H.ER 14:33
DX: J40 Bronchitis, not specified as acute or chronic (principal)

== ENCOUNTER 2018-03-26 16:40 | Emergency (ER) | payer MEDICAID ==
[2018-03-26 16:41] VITALS: BMI 23.0
[2018-03-26 17:04] VITALS: BP 99/64; PULSE 64; RESP 18; TEMP 98.2; O2SAT 100
--- NOTE | 2018-03-26 18:29 | ED PDOC ---
HPI: Abdomen Time Seen by Provider: 03/26/18 17:10 Chief Complaint (Nursing): Female Genitourinary Chief Complaint (Provider): Abdominal Pain History Per: Patient History/Exam Limitations: no limitations Onset/Duration Of Symptoms: Hrs Current Symptoms Are (Timing): Still Present Additional Complaint(s): 22 y/o female with no significant PMHx presents to the ED complaining of abdominal pain, onset 2 weeks ago. Patient reports pain is associated with one episode of vomiting and chest pain today. Patient admits to drinking alcohol every night including last night. Patient reports she has been drinking alcohol since she was 18 years old. Upon arrival to the room, patient reports pain is no longer there. PMD: No Provider Past Medical History Reviewed: Historical Data, Nursing Documentation, Vital Signs Vital Signs: Last Vital Signs Temp 98.2 F 03/26/18 17:01 Pulse 64 03/26/18 17:01 Resp 18 03/26/18 17:01 BP 99/64 L 03/26/18 17:01 Pulse Ox 100 03/26/18 18:31 - Medical History PMH: Back Problems Denies: Chronic Kidney Disease - Surgical History Surgical History: No Surg Hx - Family History Family History: States: Unknown Family Hx - Social History Current smoker - smoking cessation education provided: Yes Alcohol: > 2 Drinks/Day - Immunization History Hx Tetanus Toxoid Vaccination: No Hx Influenza Vaccination: No Hx Pneumococcal Vaccination: No - Home Medications Home Medications: Ambulatory Orders Medication Instructions Recorded Ibuprofen [Motrin Tab] 600 mg PO Q6 #30 tab 03/07/17 Amoxicillin/Clavulanate [Augmentin 10 ml PO BID 10 Days ml 04/18/17 400-57] Amoxicillin/Clavulanate [Augmentin 1 tab PO BID #20 tab 04/18/17 875 MG-125 MG] Ibuprofen [Motrin] 600 mg PO Q6 #20 tab 04/18/17 Vit Calc,Iron,Folic 1 each PO DAILY #30 tablet 06/07/17 [ Vitamins] Sulfamethoxazole/Trimethoprim 1 tab PO BID #14 tab 10/30/17 [Bactrim DS 800 mg-160 mg] Ibuprofen [Motrin Tab] 600 mg PO Q8 PRN #30 tab 01/28/18 Promethazine DM [Phenergan DM 10 ml PO Q6 PRN #120 ml 07/22/18 Syrup] - Allergies Allergies/Adverse Reactions: Allergies Allergy/AdvReac Type Severity Reaction Status Date / Time No Known Allergies Allergy Verified 03/07/17 16:50 Review of Systems ROS Statement: Except As Marked, All Systems Reviewed And Found Negative Cardiovascular: Positive for: Chest Pain Gastrointestinal: Positive for: Vomiting, Abdominal Pain Physical Exam - Reviewed Nursing Documentation Reviewed: Yes Vital Signs Reviewed: Yes - Physical Exam Appears: Positive for: No Acute Distress Head Exam: Positive for: ATRAUMATIC, NORMOCEPHALIC Skin: Positive for: Normal Color, Warm, Dry Eye Exam: Positive for: Normal appearance, EOMI, PERRL ENT: Positive for: Normal ENT Inspection Neck: Positive for: Normal Cardiovascular/Chest: Positive for: Regular Rate, Rhythm. Negative for: Murmur Respiratory: Positive for: Normal Breath Sounds. Negative for: Respiratory Distress Gastrointestinal/Abdominal: Positive for: Normal Exam, Soft. Negative for: Tenderness Extremity: Positive for: Normal ROM. Negative for: Pedal Edema, Deformity Neurologic/Psych: Positive for: Alert, Oriented. Negative for: Motor/Sensory Deficits - ECG O2 Sat by Pulse Oximetry: 100 (RA) Pulse Ox Interpretation: Normal Medical Decision Making Medical Decision Making: Time: 1802 Plan: abdominal pain rule out electrolyte abnormality, rule out UTI -- Alcohol Serum -- CMP -- Lipase -- CBC with differentials Time: 1829 -- Patient did not want to wait for labs. Patient states she just wanted to know if she was . (-ve) -- Patient left without treatment completion. ____ Scribe Attestation: Documented by Fracisco Perez acting as a scribe for Jina Oneal MD. Provider Scribe Attestation: All medical record entries made by the Scribe were at my direction and personally dictated by me. I have reviewed the chart and agree that the record accurately reflects my personal performance of the history, physical exam, medical decision making, and the department course for this patient. I have also personally directed, reviewed, and agree with the discharge instructions and disposition. Disposition - Clinical Impression Clinical Impression: Abdominal pain - Patient ED Disposition Is Patient to be Admitted: No - Disposition Disposition: Left W/O Treatment Disposition Time: 18:25 Condition: STABLE Forms: [facility] (Croatian), [facility] ED School/Work Excuse
== END 2018-03-26 18:21 | disposition home or self-care (01) ==
LOC: H.ER 16:40
DX: R10.9 Unspecified abdominal pain (principal); F17.200 Nicotine dependence, unspecified, uncomplicated

== ENCOUNTER 2018-04-16 21:38 | Emergency (ER) | payer MEDICAID ==
[2018-04-16 21:38] VITALS: BMI 23.0
[2018-04-16 22:23] VITALS: BP 102/68; PULSE 78; RESP 18; TEMP 98.7; O2SAT 99
--- NOTE | 2018-04-16 23:17 | ED PDOC ---
Lower Extremity Pain/Injury Time Seen by Provider: 04/16/18 23:00 Chief Complaint (Nursing): Lower Extremity Problem/Injury Chief Complaint (Provider): left foot pain History Per: Patient History/Exam Limitations: no limitations Onset/Duration Of Symptoms: Hrs Current Symptoms Are (Timing): Still Present Additional Complaint(s): 23 y/o female presents for evaluation of pain/swelling to left foot x 5 hours. Patient states she was helping her friend move and she dropped a 20lb dumbbell onto her foot, was wearing socks only. Denies numbness/weakness left lower extr emity, limitation of movement. Past Medical History Reviewed: Historical Data, Nursing Documentation, Vital Signs Vital Signs: Last Vital Signs Temp 98.7 F 04/16/18 22:21 Pulse 78 04/16/18 22:21 Resp 18 04/16/18 22:21 BP 102/68 04/16/18 22:21 Pulse Ox 99 04/16/18 22:21 - Medical History PMH: Back Problems Denies: Chronic Kidney Disease - Surgical History Surgical History: No Surg Hx - Family History Family History: States: Unknown Family Hx - Immunization History Hx Tetanus Toxoid Vaccination: No Hx Influenza Vaccination: No Hx Pneumococcal Vaccination: No - Home Medications Home Medications: Ambulatory Orders Medication Instructions Recorded Ibuprofen [Motrin Tab] 600 mg PO Q6 #30 tab 03/07/17 Amoxicillin/Clavulanate [Augmentin 10 ml PO BID 10 Days ml 04/18/17 400-57] Amoxicillin/Clavulanate [Augmentin 1 tab PO BID #20 tab 04/18/17 875 MG-125 MG] Ibuprofen [Motrin] 600 mg PO Q6 #20 tab 04/18/17 Vit Calc,Iron,Folic 1 each PO DAILY #30 tablet 06/07/17 [ Vitamins] Sulfamethoxazole/Trimethoprim 1 tab PO BID #14 tab 10/30/17 [Bactrim DS 800 mg-160 mg] Ibuprofen [Motrin Tab] 600 mg PO Q8 PRN #30 tab 01/28/18 Promethazine DM [Phenergan DM 10 ml PO Q6 PRN #120 ml 01/28/18 Syrup] Ibuprofen [Motrin Tab] 1 tab PO Q6 PRN #20 tab 04/17/18 - Allergies Allergies/Adverse Reactions: Allergies Allergy/AdvReac Type Severity Reaction Status Date / Time No Known Allergies Allergy Verified 03/07/17 16:50 Review of Systems ROS Statement: Except As Marked, All Systems Reviewed And Found Negative Musculoskeletal: Positive for: Foot Pain (left foot) Physical Exam - Reviewed Nursing Documentation Reviewed: Yes Vital Signs Reviewed: Yes - Physical Exam Appears: Positive for: Well, Non-toxic, No Acute Distress Pulses-Dorsalis Pedis (L): 2+ Pulses-Dorsalis Pedis (R): 2+ Pulses-Post. Tibialis (L): 2+ Pulses-Post. Tibialis (R): 2+ Extremity: Positive for: Normal ROM, Tenderness (proximal left 5th metatarsal with + swelling, tenderness), Capillary Refill (<2 sec b/l LE). Negative for: Calf Tenderness, Deformity Neurologic/Psych: Positive for: Alert, Oriented (x3). Negative for: Motor/Sensory Deficits - ECG O2 Sat by Pulse Oximetry: 99 - Other Rad xray left foot X-Ray: Viewed By Me X-Ray Interpretation: no acute findings - Progress ED Course And Treament: xray, ibuprofen, ice application Patient educated on findings, left foot placed in surgical shoe Advised RICE. Rx ibuprofen provided Follow up podiatry Return precautions given Disposition - Clinical Impression Clinical Impression: Contusion of foot - Patient ED Disposition Is Patient to be Admitted: No Counseled Patient/Family Regarding: Studies Performed, Diagnosis, Need For Followup, Rx Given - Disposition Referrals: Podiatry Clinic [Outside] Disposition: Routine/Home Disposition Time: 02:42 Condition: IMPROVED Prescriptions: Ibuprofen [Motrin Tab] 1 tab PO Q6 PRN #20 tab PRN Reason: Pain, Moderate (4-7) Instructions: Taking Care of Bruises
--- NOTE | 2018-04-17 10:12 | RAD ---
Date of service: 04/17/2018 PROCEDURE: Left Foot Radiographs. HISTORY: weight fell on lateral aspect left foot COMPARISON: None. FINDINGS: BONES: No acute fracture or destructive bony lesion identified. JOINTS: Normal. SOFT TISSUES: Normal. OTHER FINDINGS: None. IMPRESSION: Normal left foot radiographs.
== END 2018-04-17 03:10 | disposition home or self-care (01) ==
LOC: H.ER 21:38
DX: S90.32XA Contusion of left foot, initial encounter (principal); W22.8XXA Striking against or struck by other objects, initial encounter; Y92.89 Other specified places as the place of occurrence of the external cause

== ENCOUNTER 2018-05-01 16:01 | Emergency (ER) | payer OTHER ==
[2018-05-01 16:02] VITALS: BMI 23.0
[2018-05-01 16:14] VITALS: BP 111/54; PULSE 77; RESP 16; TEMP 98; O2SAT 100
[2018-05-01] MEDS ORDERED: Lidocaine 1% Inj (20ml) ONE (16:27)
[2018-05-01] MEDS ORDERED: Lidocaine 1% Inj (20ml) IJ ONE (16:33)
[2018-05-01] MEDS ORDERED: Povidone Iodine Topical 10% Sol ONE (16:34)
[2018-05-01] MEDS ORDERED: Tmp-Smz 800 mg-160 mg DS Tab PO STA (17:13)
[2018-05-01] MEDS ORDERED: Tmp-Smz 800 mg-160 mg DS Tab ONE (17:16)
--- NOTE | 2018-05-01 17:20 | ED PDOC ---
Upper Extremity Pain/Injury Time Seen by Provider: 05/01/18 16:23 Chief Complaint (Nursing): Finger,Hand,&Wrist Chief Complaint (Provider): Finger,Hand,&Wrist History Per: Patient History/Exam Limitations: no limitations Onset/Duration Of Symptoms: Persistent, Worse Since (x1 week) Current Symptoms Are (Timing): Still Present Additional Complaint(s): 23 year old female with pmHx of paronychia, presents to ED with a complaint of right 3rd digit pain associated with worsening redness and swelling for the last week. She denies any trauma, fever, chills, drainage, numbness, paraesthesia, decreased ROM, wrist pain, headache, nausea, or vomiting. Patient reports that she gets manicures regularly. PMD: none provided Past Medical History Reviewed: Historical Data, Nursing Documentation, Vital Signs Vital Signs: Last Vital Signs Temp 98.0 F 05/01/18 16:13 Pulse 77 05/01/18 16:13 Resp 16 05/01/18 16:13 BP 111/54 L 05/01/18 16:13 Pulse Ox 100 05/01/18 16:13 - Medical History PMH: Back Problems Denies: Chronic Kidney Disease Other PMH: paronychia - Surgical History Surgical History: Denies: No Surg Hx Other surgeries: dilation and curettage - Family History Family History: States: Unknown Family Hx - Social History Current smoker - smoking cessation education provided: Yes Alcohol: Occasional Drugs: Denies - Immunization History Hx Tetanus Toxoid Vaccination: No Hx Influenza Vaccination: No Hx Pneumococcal Vaccination: No - Home Medications Home Medications: Ambulatory Orders Medication Instructions Recorded Ibuprofen [Motrin Tab] 600 mg PO Q6 #30 tab 03/07/17 Amoxicillin/Clavulanate [Augmentin 10 ml PO BID 10 Days ml 04/18/17 400-57] Amoxicillin/Clavulanate [Augmentin 1 tab PO BID #20 tab 04/18/17 875 MG-125 MG] Ibuprofen [Motrin] 600 mg PO Q6 #20 tab 04/18/17 Vit Calc,Iron,Folic 1 each PO DAILY #30 tablet 06/07/17 [ Vitamins] Sulfamethoxazole/Trimethoprim 1 tab PO BID #14 tab 10/30/17 [Bactrim DS 800 mg-160 mg] Ibuprofen [Motrin Tab] 600 mg PO Q8 PRN #30 tab 01/28/18 Promethazine DM [Phenergan DM 10 ml PO Q6 PRN #120 ml 01/28/18 Syrup] Ibuprofen [Motrin Tab] 1 tab PO Q6 PRN #20 tab 04/17/18 Sulfamethoxazole/Trimethoprim 1 tab PO Q12H #14 tab 05/01/18 [Bactrim DS 800 mg-160 mg] - Allergies Allergies/Adverse Reactions: Allergies Allergy/AdvReac Type Severity Reaction Status Date / Time No Known Allergies Allergy Verified 05/01/18 16:12 Review of Systems ROS Statement: Except As Marked, All Systems Reviewed And Found Negative Constitutional: Negative for: Fever, Chills Gastrointestinal: Negative for: Nausea, Vomiting Musculoskeletal: Positive for: Hand Pain (right 3rd digit with redness and swell ing to tip). Negative for: Other (drainage or decreased ROM of fingers/wrist) Neurological: Negative for: Numbness (or paraesthesia), Headache Physical Exam - Reviewed Nursing Documentation Reviewed: Yes Vital Signs Reviewed: Yes - Physical Exam Appears: Positive for: Non-toxic, No Acute Distress Head Exam: Positive for: ATRAUMATIC, NORMAL INSPECTION, NORMOCEPHALIC Skin: Positive for: Normal Color Eye Exam: Positive for: Normal appearance, EOMI, PERRL ENT: Positive for: Normal ENT Inspection (moist mucous membranes) Cardiovascular/Chest: Positive for: Regular Rate, Rhythm Respiratory: Positive for: Normal Breath Sounds. Negative for: Respiratory Distress Extremity: Positive for: Normal ROM (right digits and wrist; neurovascularly intact), Tenderness (right 3rd digit with erythema, edema and fluctuance over DIP joint to nail), Swelling (distal 3rd digit swelling; right hand). Negative for: Other (streaking) Neurologic/Psych: Positive for: Alert (x3), Oriented, Gait (steady). 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 Offered to digit block the affected finger or use nitrous oxide to relieve pain and continue, pt refuses. Pt would like to attempt outpatient management and return if symptoms persist. Dr. Chowdhury saw and evaluated pt. Recommends warm compresses and outpatient antibiotics with instructions to return if symptoms worsen or persist. Time: 1800 --Upon provider reevaluation, patient is feeling better, medically stable, and requires no further treatment in the ED at this time. Patient will be discharged home with Rx for Bactrim DS. Counseling was provided and all questions were answered regarding diagnosis and need for follow up with [facility]. There is agreement to discharge plan. Return if symptoms persist or worsen. Clinical Impression: Paronychia Plan: * Warm compresses * Bactrim DS 1 tab bid x 7 days * Followup with clinic within 2 days * Return to ER with persistent, new, or worsening symptoms Scribe Attestation: Documented by Mary Jo Caballero, acting as a scribe for Wendi Kelley PA-C. Provider Scribe Attestation: All medical record entries made by the Scribe were at my direction and personally dictated by me. I have reviewed the chart and agree that the record accurately reflects my personal performance of the history, physical exam, medical decision making, and the department course for this patient. I have also personally directed, reviewed, and agree with the discharge instructions and disposition Procedures - Incision and Drainage Site: right 3rd digit Blade Size: 11 I & D Procedure: betadine prep Progress: Time: 1714 --Verbal consent obtained from patient --Sterile procedure observed, area prepped with betadine --1% lidocaine local anesthetic; 1cc --Small incision made over area of fluctuance, no purulence expressed --Second small incision made laterally, purulence expressed --Patient tolerated procedure without complications --Offered to digit block finger to allow for more extensive drainage, pt refuses --She remains AxO x3 and reports improvement in symptoms. Disposition - Clinical Impression Clinical Impression: Paronychia - Patient ED Disposition Is Patient to be Admitted: No Counseled Patient/Family Regarding: Studies Performed, Diagnosis, Need For Followup, Rx Given - Disposition Referrals: [facility] [Outside] Disposition: Routine/Home Disposition Time: 18:00 Condition: IMPROVED Additional Instructions: Warm compresses 2-3 times daily Take antibiotic every 12 hours for 7 days Wear gloves at work Followup with clinic within 2 days Return to ED if symptoms persist or worsen Prescriptions: Sulfamethoxazole/Trimethoprim [Bactrim DS 800 mg-160 mg] 1 tab PO Q12H #14 tab Instructions: Paronychia Forms: [employer] (Chinese), [facility] ED School/Work Excuse
== END 2018-05-01 18:05 | disposition home or self-care (01) ==
LOC: H.ER 16:01
DX: L03.011 Cellulitis of right finger (principal)

== ENCOUNTER 2018-05-06 18:19 | Emergency (ER) | payer MEDICAID, OTHER ==
[2018-05-06 18:19] VITALS: BMI 23.0
[2018-05-06 18:41] VITALS: BP 113/74; PULSE 70; RESP 18; TEMP 98.5; O2SAT 100
[2018-05-06] MEDS ORDERED: PROPARACAINE/FLUORESCEIN SOD 100 DROP/5 ML BOTTLE OS STA (18:57)
[2018-05-06] MEDS ORDERED: PROPARACAINE/FLUORESCEIN SOD 100 DROP/5 ML BOTTLE ONE (19:15)
--- NOTE | 2018-05-06 20:01 | ED PDOC ---
HPI: Eye Injury/Pain Time Seen by Provider: 05/06/18 18:45 Chief Complaint (Nursing): Eye Problem Chief Complaint (Provider): Left eye pain History Per: Patient History/Exam Limitations: no limitations Onset/Duration Of Symptoms: Days Current Symptoms Are (Timing): Still Present Quality: Sharp, Burning Wears Contact Lens?: No Associated Symptoms: Pain, FB Sensation. denies: Decreased Vision, Swelling Additional Complaint(s): 23 yo female with no medical problems presents for evaluation of left eye pain for 2 days. PT states she was scratched in the eye. Pt denies change in vision. Pt reports using contacts. Pt states that she did not apply anything in the eye. Pt denies drainage. Pt denies similar in the past. Past Medical History Reviewed: Historical Data, Nursing Documentation, Vital Signs Vital Signs: Last Vital Signs Temp 98.5 F 05/06/18 18:39 Pulse 70 05/06/18 18:39 Resp 18 05/06/18 18:39 BP 113/74 05/06/18 18:39 Pulse Ox 100 05/06/18 18:39 - Medical History PMH: Back Problems Denies: Chronic Kidney Disease - Surgical History Surgical History: No Surg Hx - Family History Family History: States: Unknown Family Hx - Living Arrangements Living Arrangements: With Family - Social History Current smoker - smoking cessation education provided: No - Immunization History Hx Tetanus Toxoid Vaccination: No Hx Influenza Vaccination: No Hx Pneumococcal Vaccination: No - Home Medications Home Medications: Ambulatory Orders Medication Instructions Recorded Ibuprofen [Motrin Tab] 600 mg PO Q6 #30 tab 03/07/17 Amoxicillin/Clavulanate [Augmentin 10 ml PO BID 10 Days ml 04/18/17 400-57] Amoxicillin/Clavulanate [Augmentin 1 tab PO BID #20 tab 04/18/17 875 MG-125 MG] Ibuprofen [Motrin] 600 mg PO Q6 #20 tab 04/18/17 Vit Calc,Iron,Folic 1 each PO DAILY #30 tablet 06/07/17 [ Vitamins] Sulfamethoxazole/Trimethoprim 1 tab PO BID #14 tab 10/30/17 [Bactrim DS 800 mg-160 mg] Ibuprofen [Motrin Tab] 600 mg PO Q8 PRN #30 tab 01/28/18 Promethazine DM [Phenergan DM 10 ml PO Q6 PRN #120 ml 01/28/18 Syrup] Ibuprofen [Motrin Tab] 1 tab PO Q6 PRN #20 tab 04/17/18 Sulfamethoxazole/Trimethoprim 1 tab PO Q12H #14 tab 05/01/18 [Bactrim DS 800 mg-160 mg] Gentamicin 0.1% 0.1 / TP BID #1 tube 05/06/18 - Allergies Allergies/Adverse Reactions: Allergies Allergy/AdvReac Type Severity Reaction Status Date / Time No Known Allergies Allergy Verified 05/06/18 18:37 Review of Systems ROS Statement: Except As Marked, All Systems Reviewed And Found Negative Constitutional: Negative for: Fever, Chills Eyes: Positive for: Pain. Negative for: Redness Respiratory: Negative for: Cough Physical Exam - Reviewed Nursing Documentation Reviewed: Yes Vital Signs Reviewed: Yes - Physical Exam Appears: Positive for: Well, Non-toxic, No Acute Distress Head Exam: Positive for: ATRAUMATIC, NORMAL INSPECTION, NORMOCEPHALIC Skin: Positive for: Normal Color, Warm, DRY Eye Exam: Positive for: EOMI, PERRL, Conjunctival injection, Other ((-) corneal abrasions, (-) FB seen with upper eye lid inversion ). Negative for: Normal appearance Neck: Positive for: Normal Respiratory: Negative for: Accessory Muscle Use, Respiratory Distress Back: Positive for: Normal Inspection Extremity: Positive for: Normal ROM. Negative for: Tenderness Neurologic/Psych: Positive for: Alert, Oriented - ECG O2 Sat by Pulse Oximetry: 100 Disposition - Clinical Impression Clinical Impression: Conjunctivitis - Patient ED Disposition Is Patient to be Admitted: No Counseled Patient/Family Regarding: Diagnosis, Need For Followup, Rx Given - Disposition Referrals: Tank Clarke MD [Staff Provider] - Disposition: Routine/Home Disposition Time: 19:59 Condition: STABLE Prescriptions: Gentamicin 0.1% 0.1 / TP BID #1 tube Instructions: Conjunctivitis ([place]keye) Forms: [employer] (Indonesian)
== END 2018-05-06 20:08 | disposition home or self-care (01) ==
LOC: H.ER 18:19
DX: H10.9 Unspecified conjunctivitis (principal)

== ENCOUNTER 2018-07-07 03:23 | Emergency (ER) | payer MEDICAID ==
[2018-07-07 03:24] VITALS: BMI 23.0
[2018-07-07 03:50] VITALS: BP 115/82; PULSE 76; RESP 18; TEMP 98.1; O2SAT 100
--- NOTE | 2018-07-07 04:35 | ED PDOC ---
HPI: Abdomen Time Seen by Provider: 07/07/18 03:58 Chief Complaint (Nursing): Abdominal Pain Chief Complaint (Provider): Abdominal Pain History Per: Patient History/Exam Limitations: no limitations Onset/Duration Of Symptoms: Days (x1) Location Of Pain/Discomfort: Other (Lower abdominal pain) Associated Symptoms: Urinary Symptoms (Pain in urination and decrease urinatio n). denies: Fever, Other (blood in urine) Additional Complaint(s): 23 y/o female presents to ER for evaluation of lower abdominal pain started yesterday at 10 am. Patient reports lower abdominal fullness associated with pain in urination and decrease urination. She states symptoms feel like UTI she had years ago and went away with antibiotics. Patient is unsure of any previous posing factors. She denies any blood in urine, flank pain or fever. LNMP: Jun 24, 2018 PMD: Dahlia Duong Past Medical History Reviewed: Historical Data, Nursing Documentation, Vital Signs Vital Signs: Last Vital Signs Temp 98.1 F 07/07/18 03:46 Pulse 76 07/07/18 03:46 Resp 18 07/07/18 03:46 BP 115/82 07/07/18 03:46 Pulse Ox 100 07/07/18 03:46 - Medical History PMH: Back Problems Denies: Chronic Kidney Disease - Surgical History Surgical History: No Surg Hx - Family History Family History: States: Unknown Family Hx - Social History Current smoker - smoking cessation education provided: No Alcohol: None Drugs: Denies - Immunization History Hx Tetanus Toxoid Vaccination: No Hx Influenza Vaccination: No Hx Pneumococcal Vaccination: No - Home Medications Home Medications: Ambulatory Orders Medication Instructions Recorded Ibuprofen [Motrin Tab] 600 mg PO Q6 #30 tab 03/07/17 Amoxicillin/Clavulanate [Augmentin 10 ml PO BID 10 Days ml 04/18/17 400-57] Amoxicillin/Clavulanate [Augmentin 1 tab PO BID #20 tab 04/18/17 875 MG-125 MG] Ibuprofen [Motrin] 600 mg PO Q6 #20 tab 04/18/17 Vit Calc,Iron,Folic 1 each PO DAILY #30 tablet 06/07/17 [ Vitamins] Sulfamethoxazole/Trimethoprim 1 tab PO BID #14 tab 10/30/17 [Bactrim DS 800 mg-160 mg] Ibuprofen [Motrin Tab] 600 mg PO Q8 PRN #30 tab 01/28/18 Promethazine DM [Phenergan DM 10 ml PO Q6 PRN #120 ml 01/28/18 Syrup] Ibuprofen [Motrin Tab] 1 tab PO Q6 PRN #20 tab 04/17/18 Sulfamethoxazole/Trimethoprim 1 tab PO Q12H #14 tab 05/01/18 [Bactrim DS 800 mg-160 mg] Gentamicin 0.1% 0.1 / TP BID #1 tube 05/06/18 Erythromycin 0.5% [Erythromycin] 1 applic TOP TID #1 tube 05/07/18 Nitrofurantoin Macrocrystals 100 mg PO BID #10 cap 07/07/18 [Macrobid] Phenazopyridine HCl [Pyridium] 100 mg PO TID 6 Days tablet 07/07/18 - Allergies Allergies/Adverse Reactions: Allergies Allergy/AdvReac Type Severity Reaction Status Date / Time No Known Allergies Allergy Verified 05/06/18 18:37 Review of Systems ROS Statement: Except As Marked, All Systems Reviewed And Found Negative Constitutional: Negative for: Fever Gastrointestinal: Positive for: Abdominal Pain (lower) Genitourinary Female: Positive for: Dysuria. Negative for: Hematuria Musculoskeletal: Negative for: Other (Flank pain) Physical Exam - Reviewed Nursing Documentation Reviewed: Yes Vital Signs Reviewed: Yes - Physical Exam Appears: Positive for: Non-toxic, No Acute Distress (sitting on stretcher eating candy) Head Exam: Positive for: ATRAUMATIC, NORMOCEPHALIC Skin: Positive for: Normal Color, Warm, Dry Neck: Positive for: Normal, Painless ROM, Supple Cardiovascular/Chest: Positive for: Regular Rate, Rhythm. Negative for: Murmur Respiratory: Positive for: Normal Breath Sounds. Negative for: Wheezing Gastrointestinal/Abdominal: Positive for: Normal Exam, Soft. Negative for: Tenderness Back: Positive for: Normal Inspection. Negative for: L CVA Tenderness, R CVA Tenderness Extremity: Positive for: Normal ROM. Negative for: Pedal Edema, Deformity Neurologic/Psych: Positive for: Alert, Oriented (x3) - ECG O2 Sat by Pulse Oximetry: 100 (RA) Pulse Ox Interpretation: Normal Medical Decision Making Medical Decision Making: Time: 0422 A/P: workup for UTI with UA --Will give antibiotics if UA shows infection --Consider labs if no UTI --Patient most likely to be discharged home 0620 UA shows large leukocyte esterase. UA and PE are consistent with UTI. Patient is stable for discharge with Rx for Macrobid and Pyridium. ----- Scribe Attestation: Documented by Dacia Ruiz, acting as a scribe for Shayla Gr MD. Provider Scribe Attestation: All medical record entries made by the Scribe were at my direction and personally dictated by me. I have reviewed the chart and agree that the record accurately reflects my personal performance of the history, physical exam, medical decision making, and the department course for this patient. I have also personally directed, reviewed, and agree with the discharge instructions and disposition. Disposition - Clinical Impression Clinical Impression: UTI (urinary tract infection) - Patient ED Disposition Is Patient to be Admitted: No - Disposition Disposition: Routine/Home Disposition Time: 06:20 Condition: STABLE Forms: [employer] (Uzbek)
[2018-07-07 05:33] LABS: SQUAMOUS EPITHIAL 9 /hpf (0-5); URINE BILIRUBIN NEGATIVE (NEGATIVE); URINE BLOOD SMALL (NEGATIVE); URINE CLARITY CLOUDY (Clear); URINE COLOR YELLOW (YELLOW); URINE GLUCOSE (UA) NEG (NEGATIVE); URINE LEUKOCYTE ESTERASE LARGE Leu/uL (Negative); URINE PROTEIN 30 mg/dL (NEGATIVE)
== END 2018-07-07 06:29 | disposition home or self-care (01) ==
LOC: H.ER 03:23
DX: N39.0 Urinary tract infection, site not specified (principal)

== ENCOUNTER 2018-09-09 13:26 | Emergency (ER) | payer MEDICAID, OTHER ==
[2018-09-09 13:26] VITALS: BMI 23.0
[2018-09-09 13:46] VITALS: BP 114/76; PULSE 75; RESP 18; TEMP 97.5; O2SAT 100
--- NOTE | 2018-09-09 14:22 | ED PDOC ---
Upper Extremity Pain/Injury Time Seen by Provider: 09/09/18 13:38 Chief Complaint (Nursing): Finger,Hand,&Wrist Chief Complaint (Provider): Painful Swelling to Index Finger History Per: Patient History/Exam Limitations: no limitations Onset/Duration Of Symptoms: Days (past several) Current Symptoms Are (Timing): Still Present Additional Complaint(s): 23 year old female presents to the ED for evaluation of painful swelling to her left index finger for the past several days. She notes she has a history of biting her nails and having to have the same area drained multiple times. Denies other complaints. PMD: none provided Past Medical History Reviewed: Historical Data, Nursing Documentation, Vital Signs Vital Signs: Last Vital Signs Temp 97.5 F L 09/09/18 13:45 Pulse 75 09/09/18 13:45 Resp 18 09/09/18 13:45 BP 114/76 09/09/18 13:45 Pulse Ox 100 09/09/18 13:45 - Medical History PMH: Back Problems Denies: Chronic Kidney Disease - Surgical History Other surgeries: multiple I&D procedures to fingers - Family History Family History: States: Unknown Family Hx - Social History Current smoker - smoking cessation education provided: Yes Alcohol: Social Drugs: Denies - Immunization History Hx Tetanus Toxoid Vaccination: No Hx Influenza Vaccination: No Hx Pneumococcal Vaccination: No - Home Medications Home Medications: Ambulatory Orders Medication Instructions Recorded Ibuprofen [Motrin Tab] 600 mg PO Q6 #30 tab 03/07/17 Amoxicillin/Clavulanate [Augmentin 10 ml PO BID 10 Days ml 04/18/17 400-57] Amoxicillin/Clavulanate [Augmentin 1 tab PO BID #20 tab 04/18/17 875 MG-125 MG] Ibuprofen [Motrin] 600 mg PO Q6 #20 tab 04/18/17 Vit Calc,Iron,Folic 1 each PO DAILY #30 tablet 06/07/17 [ Vitamins] Sulfamethoxazole/Trimethoprim 1 tab PO BID #14 tab 10/30/17 [Bactrim DS 800 mg-160 mg] Ibuprofen [Motrin Tab] 600 mg PO Q8 PRN #30 tab 01/28/18 Promethazine DM [Phenergan DM 10 ml PO Q6 PRN #120 ml 01/28/18 Syrup] Ibuprofen [Motrin Tab] 1 tab PO Q6 PRN #20 tab 04/17/18 Sulfamethoxazole/Trimethoprim 1 tab PO Q12H #14 tab 05/01/18 [Bactrim DS 800 mg-160 mg] Gentamicin 0.1% 0.1 / TP BID #1 tube 05/06/18 Erythromycin 0.5% [Erythromycin] 1 applic TOP TID #1 tube 05/07/18 Nitrofurantoin Macrocrystals 100 mg PO BID #10 cap 07/07/18 [Macrobid] Phenazopyridine HCl [Pyridium] 100 mg PO TID 6 Days tablet 07/07/18 Sulfamethoxazole/Trimethoprim 2 tab PO BID #28 tab 09/09/18 [Bactrim DS 800 mg-160 mg] - Allergies Allergies/Adverse Reactions: Allergies Allergy/AdvReac Type Severity Reaction Status Date / Time pineapple Allergy SWELLING Verified 09/09/18 13:37 Review of Systems ROS Statement: Except As Marked, All Systems Reviewed And Found Negative Musculoskeletal: Positive for: Other (painful swelling to left index finger) Physical Exam - Reviewed Nursing Documentation Reviewed: Yes Vital Signs Reviewed: Yes - Physical Exam Appears: Positive for: No Acute Distress Pulses-Radial (L): 2+ Pulses-Radial (R): 2+ Extremity: Positive for: Capillary Refill (less than 2 seconds), Other (tenderness, fluctuance, and swelling to left medial surface of left second digit nail margin with no streaking) - ECG O2 Sat by Pulse Oximetry: 100 (RA) Pulse Ox Interpretation: Normal Medical Decision Making Medical Decision Making: Time: 1345 Initial Impression: paronychia Initial Plan: --Incision and drainage preformed by [place]. See procedure note. 1350 Patient tolerated procedure well without use of anesthetics. No purulent material obtained. Dry sterile dressing applied and patient reports feeling improved. Advised to stop biting her nails and return parameters discussed. Stable for discharge. -------- --------- Scribe Attestation: Documented by Danita Anodide, acting as a scribe for Bud Whitfield PA-C. Provider Scribe Attestation: All medical record entries made by the Scribe were at my direction and personally dictated by me. I have reviewed the chart and agree that the record accurately reflects my personal performance of the history, physical exam, medical decision making, and the department course for this patient. I have also personally directed, reviewed, and agree with the discharge instructions and disposition. Procedures - Time-Out Correct Patient: Yes Correct Procedure: Yes PA/Tech: Bud Whitfield PA-C - Incision and Drainage Site: left index finger Blade Size: 11 I & D Procedure: betadine prep, sterile dressing applied Disposition - Clinical Impression Clinical Impression: Paronychia - Disposition Referrals: [facility] [Outside] formerly [facility] [Outside] Disposition Time: 13:50 Condition: STABLE Additional Instructions: LULU MUNSON, thank you for letting us take care of you today. Your provider was Peg Leong MD and you were treated for LEFT HAND POINTER FINGER. The emergency medical care you received today was directed at your acute symptoms. If you were prescribed any medication, please fill it and take as directed. It may take several days for your symptoms to resolve. Return to the Emergency Department if your symptoms worsen, do not improve, or if you have any other problems. Please contact your doctor or call one of the physicians/clinics you have been referred to that are listed on the Patient Visit Information form that is included in your discharge packet. Bring any paperwork you were given at discharge with you along with any medications you are taking to your follow up visit. Our treatment cannot replace ongoing medical care by a primary care provider outside of the emergency department. Thank you for allowing the [facility] team to be part of your care today. If you had an X-Ray or CT scan: A Radiologist will review the ED reading if any change in treatment is needed we will contact you. If you had a blood, urine, or wound culture: It will take several days for the results, if any change in treatment is needed we will contact you. If you had an STI test: It will take 48 hours for the results. Please call after 1 week if you have not heard back. Prescriptions: Sulfamethoxazole/Trimethoprim [Bactrim DS 800 mg-160 mg] 2 tab PO BID #28 tab Instructions: Paronychia (DC) Forms: Simplee (Brazilian) Print Language: [id number]
== END 2018-09-09 14:06 | disposition home or self-care (01) ==
LOC: H.ER 13:26
DX: L03.012 Cellulitis of left finger (principal); F17.200 Nicotine dependence, unspecified, uncomplicated